=== PATIENT | male | born 1960 | race Caucasian/White ===

== ENCOUNTER 2024-05-10 14:05 | Inpatient (IN) ==
[2024-05-10] MEDS ORDERED: IOPAMIDOL 100 ML BOTTLE IV ONE (14:06)
[2024-05-10 14:55] LABS: Basophils # (Auto) 0 K/mcL (0.00-0.30); Basophils % (Auto) 0 % (0.0-2.0); Eosinophils # (Auto) 0 K/mcL (0.00-0.70); Eosinophils % (Auto) 0 % (0.0-7.0); Hematocrit 31.3 % (40.1-51.0); Hemoglobin 11.1 g/dL (13.7-17.5); Lymphocytes # (Auto) 0.45 K/mcL (1.50-4.80); Lymphocytes % (Auto) 4.2 % (15.5-49.0); Mean Cell Volume 92.6 fL (80.0-100.0); Mean Corpuscular HGB Conc 35.5 g/dL (31.0-36.0); Mean Platelet Volume 8.6 fL (8.8-12.5); Monocytes # (Auto) 1.33 K/mcL (0.10-0.90); Monocytes % (Auto) 12.3 % (1.0-12.0); Neutrophils % (Auto) 79.9 % (38.0-78.0); Platelet Count 250 K/mcL (140-440); RBC 3.38 M/mcL (4.63-6.08); Red Cell Distribution Width 13.1 % (11.5-14.5); WBC 10.8 K/mcL (4.5-11.0)
[2024-05-10 15:26] LABS: ALT/SGPT 22 U/L (<40); AST/SGOT 27 U/L (<40); Albumin 3.4 gm/dL (3.2-5.2); Alkaline Phosphatase 81 U/L (39-117); Bilirubin,Total 0.5 mg/dL (0.1-1.0); Blood Urea Nitrogen 12 mg/dL (8-23); Calcium 9.3 mg/dL (8.6-10.4); Carbon Dioxide 24 mmol/L (22-30); Chloride 85 mmol/L (96-108); Globulin 3.4 gm/dL (2.2-3.7); Glomerular Filtration Rate 125; Glucose 144 mg/dL (70-105); Potassium 3.1 mmol/L (3.3-5.1); Sodium 124 mmol/L (133-145)
[2024-05-10] MEDS: 0.9 % SODIUM CHLORIDE 1,000 ML IV ONE (16:31)
[2024-05-10] MEDS: AZITHROMYCIN 500 MG in 0.9 % SODIUM CHLORIDE 250 ML IV ONE (19:28)
[2024-05-10] MEDS: cefTRIAXone 1 GM VIAL IV ONE (19:28)
[2024-05-10] MEDS: ACETAMINOPHEN 325 MG TABLET PO ONE (19:45)
[2024-05-10] MEDS: KETOROLAC 15 MG/ML VIAL IV ONE (19:46)
[2024-05-10] MEDS ORDERED: ACETAMINOPHEN 325 MG TABLET PO PRN (20:54)
[2024-05-10] MEDS ORDERED: ALBUTEROL SULFATE 2.5 MG/3 ML NEBULIZER NEB PRN (20:54)
[2024-05-10] MEDS ORDERED: ONDANSETRON 4 MG/2 ML VIAL IV PRN (20:54)
[2024-05-10 21:40] LABS: ALT/SGPT 19 U/L (<40); AST/SGOT 19 U/L (<40); Albumin 2.9 gm/dL (3.2-5.2); Alkaline Phosphatase 68 U/L (39-117); Bilirubin,Direct 0.2 mg/dL (<0.3); Bilirubin,Total 0.3 mg/dL (0.1-1.0); Blood Urea Nitrogen 10 mg/dL (8-23); Calcium 8.6 mg/dL (8.6-10.4); Carbon Dioxide 24 mmol/L (22-30); Chloride 89 mmol/L (96-108); Globulin 2.8 gm/dL (2.2-3.7); Glomerular Filtration Rate 125; Glucose 137 mg/dL (70-105); Lactate Dehydrogenase 84 U/L (135-225); Phosphorous 2.1 mg/dL (2.5-4.5); Potassium 3.1 mmol/L (3.3-5.1); Sodium 125 mmol/L (133-145); Triglycerides 73 mg/dL (<150); Uric Acid 2.8 mg/dL (2.5-8.0)
[2024-05-10] MEDS: 0.9 % SODIUM CHLORIDE 1,000 ML IV SCH (21:43)
[2024-05-10] MEDS: AMPICILLIN SODIUM/SULBACTAM NA 3 GM in 0.9 % SODIUM CHLORIDE 100 ML IV SCH (21:45)
[2024-05-10] MEDS: SENNOSIDES 1 TABLET PO SCH (21:46)
[2024-05-10] MEDS: DOCUSATE SODIUM 100 MG CAPSULE PO SCH (21:47)
[2024-05-10] MEDS: APIXABAN 5 MG TABLET PO SCH (21:47)
[2024-05-10] MEDS: 0.9 % SODIUM CHLORIDE 10 ML SYRINGE IV SCH (21:47)
[2024-05-10 21:58] LABS: Prealbumin 3.5 mg/dL (20.0-40.0)
[2024-05-11] MEDS: IPRATROPIUM/ALBUTEROL 3 ML AMPUL.NEB NEB SCH (01:00)
[2024-05-11 06:14] LABS: Basophils # (Auto) 0.01 K/mcL (0.00-0.30); Basophils % (Auto) 0.1 % (0.0-2.0); Eosinophils # (Auto) 0.01 K/mcL (0.00-0.70); Eosinophils % (Auto) 0.1 % (0.0-7.0); Hemoglobin 9.8 g/dL (13.7-17.5); Lymphocytes # (Auto) 0.49 K/mcL (1.50-4.80); Lymphocytes % (Auto) 4.1 % (15.5-49.0); Mean Platelet Volume 8.6 fL (8.8-12.5); Monocytes # (Auto) 1.14 K/mcL (0.10-0.90); Monocytes % (Auto) 9.5 % (1.0-12.0); Neutrophils % (Auto) 85.7 % (38.0-78.0); Platelet Count 201 K/mcL (140-440); RBC 3.01 M/mcL (4.63-6.08); Red Cell Distribution Width 13.3 % (11.5-14.5)
[2024-05-11 06:36] LABS: ALT/SGPT 20 U/L (<40); AST/SGOT 19 U/L (<40); Albumin 2.7 gm/dL (3.2-5.2); Alkaline Phosphatase 70 U/L (39-117); Bilirubin,Direct 0.3 mg/dL (<0.3); Bilirubin,Total 0.4 mg/dL (0.1-1.0); Blood Urea Nitrogen 9 mg/dL (8-23); Calcium 8.4 mg/dL (8.6-10.4); Carbon Dioxide 25 mmol/L (22-30); Chloride 92 mmol/L (96-108); Globulin 2.8 gm/dL (2.2-3.7); Glomerular Filtration Rate 141; Glucose 103 mg/dL (70-105); Lactate Dehydrogenase 85 U/L (135-225); Potassium 3.2 mmol/L (3.3-5.1); Sodium 129 mmol/L (133-145); Triglycerides 67 mg/dL (<150); Uric Acid 2.2 mg/dL (2.5-8.0)
[2024-05-11] MEDS: HYDROcodone/APAP 5/325MG TABLET PO PRN (07:41)
[2024-05-11 08:16] LABS: Sodium, Urine Random < 20 mmol/L
[2024-05-11 08:34] LABS: Osmolality,Urine 549 mOSM/kg (80-1000)
[2024-05-11] MEDS: AZITHROMYCIN 500 MG in 0.9 % SODIUM CHLORIDE 250 ML IV SCH (09:50)
[2024-05-11] MEDS: POTASSIUM CHLORIDE 20 MEQ TABLET PO SCH (09:50)
[2024-05-11] MEDS: 0.9 % SODIUM CHLORIDE 1,000 ML IV SCH (12:53)
[2024-05-11 16:48] LABS: Hematocrit 27.8 % (40.1-51.0); Hemoglobin 9.3 g/dL (13.7-17.5)
[2024-05-11] MEDS: LIDOCAINE VISCOUS 2% 15 ML UNIT DOSE CUP PO PRN (17:18)
[2024-05-12] MEDS: BENZOCAINE/MENTHOL 1 LOZENGE PO PRN (13:11)
[2024-05-12] MEDS: BUDESONIDE 0.5 MG/2 ML AMPUL.NEB NEB SCH (20:21)
[2024-05-12] MEDS: APIXABAN 5 MG TABLET PO SCH (20:40)
[2024-05-13 06:50] LABS: Basophils # (Auto) 0.01 K/mcL (0.00-0.30); Basophils % (Auto) 0.1 % (0.0-2.0); Eosinophils # (Auto) 0.05 K/mcL (0.00-0.70); Eosinophils % (Auto) 0.6 % (0.0-7.0); Hematocrit 29.2 % (40.1-51.0); Hemoglobin 9.8 g/dL (13.7-17.5); Lymphocytes # (Auto) 0.61 K/mcL (1.50-4.80); Lymphocytes % (Auto) 7.7 % (15.5-49.0); Mean Cell Volume 95.7 fL (80.0-100.0); Mean Corpuscular HGB Conc 33.6 g/dL (31.0-36.0); Mean Platelet Volume 8.2 fL (8.8-12.5); Monocytes # (Auto) 0.65 K/mcL (0.10-0.90); Monocytes % (Auto) 8.2 % (1.0-12.0); Neutrophils % (Auto) 82.4 % (38.0-78.0); Platelet Count 265 K/mcL (140-440); RBC 3.05 M/mcL (4.63-6.08); Red Cell Distribution Width 13.4 % (11.5-14.5)
[2024-05-13 07:17] LABS: ALT/SGPT 36 U/L (<40); AST/SGOT 31 U/L (<40); Albumin 2.8 gm/dL (3.2-5.2); Alkaline Phosphatase 80 U/L (39-117); Bilirubin,Direct < 0.2 mg/dL (0-0.3); Bilirubin,Total 0.2 mg/dL (0.1-1.0); Blood Urea Nitrogen 9 mg/dL (8-23); Carbon Dioxide 29 mmol/L (22-30); Chloride 95 mmol/L (96-108); Globulin 2.7 gm/dL (2.2-3.7); Glomerular Filtration Rate 141; Glucose 102 mg/dL (70-105); Lactate Dehydrogenase 108 U/L (135-225); Phosphorous 3.9 mg/dL (2.5-4.5); Sodium 133 mmol/L (133-145); Triglycerides 79 mg/dL (<150); Uric Acid 2.2 mg/dL (2.5-8.0)
[2024-05-13] MEDS: Tiotropium-Olodaterol [Stiolto Respimat] 2.5-2.5 INH SCH (09:13)
[2024-05-13] MEDS: METOPROLOL SUCCINATE 50 MG TAB.XL.24H PO SCH (09:13)
[2024-05-13] MEDS: RELUGOLIX 120 MG PO SCH (09:13)
[2024-05-13] MEDS: cefTRIAXone 2 GM in DEXTROSE 5% IN WATER 50 ML IV SCH (14:55)
[2024-05-14 05:39] LABS: Basophils # (Auto) 0.02 K/mcL (0.00-0.30); Basophils % (Auto) 0.3 % (0.0-2.0); Eosinophils # (Auto) 0.06 K/mcL (0.00-0.70); Hematocrit 31.1 % (40.1-51.0); Hemoglobin 10.3 g/dL (13.7-17.5); Lymphocytes # (Auto) 0.77 K/mcL (1.50-4.80); Lymphocytes % (Auto) 12.5 % (15.5-49.0); Mean Corpuscular HGB Conc 33.1 g/dL (31.0-36.0); Mean Platelet Volume 8.2 fL (8.8-12.5); Monocytes # (Auto) 0.62 K/mcL (0.10-0.90); Monocytes % (Auto) 10.1 % (1.0-12.0); Neutrophils % (Auto) 74.3 % (38.0-78.0); Platelet Count 306 K/mcL (140-440); RBC 3.24 M/mcL (4.63-6.08); Red Cell Distribution Width 13.3 % (11.5-14.5); WBC 6.1 K/mcL (4.5-11.0)
[2024-05-14 07:20] VITALS: O2SAT 100
[2024-05-14 11:39] VITALS: TEMP 98.8
== END 2024-05-14 13:58 | disposition home or self-care (01) | DRG 194 ==
LOC: ED 14:05 → MEDSUR 20:46
PROVIDERS: ADMIT Internal Medicine; ATTEND Internal Medicine